=== PATIENT | female | born 1960 | race Caucasian/White ===

== ENCOUNTER → 2016-12-06 | Outpatient (CLI) | payer OTHER ==
[~2016-12-06] MED LIST: OMEP40CA2 PO; RANI1TAB6 PO; VITA500046 PO
--- NOTE | 2016-12-06 13:00 | REPMRS ---
Patient History The patient states she had a clinical breast exam in 2016. Patient is postmenopausal. Family history of breast cancer in maternal aunt at age 60. Digital Mammo Screening Bilat: December 06, 2016 - Exam #: [id number] Bilateral CC and MLO view(s) were taken. Technologist: Giovanna Muhammad, Technologist Prior study comparison: November 23, 2015, bilateral digital mammo screening bilat performed at [facility]. October 03, 2014, bilateral digital mammo screening bilat performed at [facility]. FINDINGS: There are scattered fibroglandular densities. There has been no change in the appearance of the mammogram from the prior studies. There is a mild amount of residual fibroglandular tissue which is fairly symmetric. There is no interval development of dominant mass, architectural distortion, or clustered microcalcification suggestive of malignancy. ASSESSMENT: BI-RADS/ACR category 1 mammogram. Negative. Recommendation Routine screening mammogram in 1 year (for women over age 40). This mammogram was interpreted with the aid of an FDA-approved computer-aided dectection system. Electronically Signed By: Phong Bautista MD 12/06/16 1300
== END ==
LOC: M RAD 12:14
PROVIDERS: ATTEND Internal Medicine
DX: Z12.31 Encounter for screening mammogram for malignant neoplasm of breast (principal)

== ENCOUNTER → 2018-03-29 | Outpatient (CLI) | payer OTHER ==
[2018-03-29 10:10] LABS: ALBUMIN 3.6 GM/DL (3.2-5.2); ALT/SGPT 29 U/L (12-78); BILIRUBIN,DIRECT < 0.1 MG/DL (0.0-0.2); BILIRUBIN,TOTAL 0.4 MG/DL (0.2-1.0); CHOLESTEROL LEVEL 216 MG/DL (<200); CHOLESTEROL RISK RATIO 3.724 (<5); GAMMA GLUTAMYLTRANSPEPTIDASE 44 U/L (5-55); HDL CHOLESTEROL 58 MG/DL (>40); LDL CHOLESTEROL 125 MG/DL (<100); NON-HDL-C 158 MG/DL; TOTAL PROTEIN 6.7 GM/DL (6.4-8.2); TRIGLYCERIDES LEVEL 167 MG/DL (<150)
[2018-03-30 10:06] LABS: TOTAL 25(OH) VITAMIN D 54.7 NG/ML (30.0-100.0)
== END ==
LOC: M WUC 08:40
PROVIDERS: ATTEND Internal Medicine
DX: E78.5 Hyperlipidemia, unspecified (principal); R74.8 Abnormal levels of other serum enzymes; E55.9 Vitamin D deficiency, unspecified

== ENCOUNTER → 2018-07-10 | Outpatient (CLI) | payer OTHER | LOC: M WUC 08:45 | PROVIDERS: ATTEND Internal Medicine | DX: E04.2 Nontoxic multinodular goiter (principal) ==

== ENCOUNTER → 2018-08-31 | Outpatient (REF) | payer OTHER ==
[2018-08-31 19:30] LABS: C REACTIVE PROTEIN QUANTITATIV 0.34 MG/DL (0.00-0.30)
[2018-09-02 14:30] LABS: HEPATITIS B SURFACE ANTIGEN NEGATIVE (NEGATIVE)
[2018-09-02 14:58] LABS: HEPATITIS C VIRUS ABY INDEX 0.1 INDEX (<0.8)
[2018-09-02 15:00] LABS: HEPATITIS A ANTIBODY IGM NEGATIVE (NEGATIVE)
[2018-09-04 10:19] LABS: HEPATITIS B CORE ANTIBODY IGM NEGATIVE (NEGATIVE)
== END ==
LOC: M LAB REF 17:18
PROVIDERS: ATTEND Internal Medicine
DX: R74.8 Abnormal levels of other serum enzymes (principal); R11.2 Nausea with vomiting, unspecified; R19.7 Diarrhea, unspecified

== ENCOUNTER → 2018-09-08 | Outpatient (REF) | payer OTHER | LOC: M LAB REF 10:21 | PROVIDERS: ATTEND Internal Medicine | DX: R19.7 Diarrhea, unspecified (principal); R11.2 Nausea with vomiting, unspecified ==

== ENCOUNTER 2019-04-27 09:06 | Emergency (ER) | payer OTHER ==
[~2019-04-27] VITALS: Ht 170.2 cm; Wt 93.0 kg
[~2019-04-27 09:06] MED LIST changes: -OMEP40CA2 PO; +OMEP40CA97 PO; +RANI-397 PO; -RANI1TAB6 PO
[2019-04-27] MEDS ORDERED: MULT1TAB8 PO (10:13)
[2019-04-27] MEDS ORDERED: OMEGCAP9 PO (10:13)
[2019-04-27] MEDS ORDERED: [UNRECOGNIZED DRUG - CODE] PO (10:13)
[2019-04-27] MEDS ORDERED: NORC1TAB7 PO (10:13)
[2019-04-27] MEDS ORDERED: OMEP-218 PO (10:13)
[2019-04-27] MEDS ORDERED: KETOROLAC 60 MG/2 ML VIAL (J1885) IM ONE (10:45)
[2019-04-27] MEDS ORDERED: ACETAMINOPHEN 325 MG TAB PO ONE (10:45)
--- NOTE | 2019-04-27 11:23 | REP ---
Lumbar spine three views: Comparison is 04/09/2011. Vertebral body heights and alignment are normal. No compression deformities. There is no listhesis. No gross evidence of spondylolysis. There is advanced degenerative disc disease at every lumbar level with bridging osteophytes throughout the lumbar spine. This has progressed from the prior study. The sacroiliac articulations are unremarkable. Impression: No fracture, compression deformity or listhesis. Multilevel degenerative disc disease with large bridging osteophytes throughout the lumbar spine that has progressed from the prior study. Electronically Signed by Phong Rosen MD 04/27/2019 11:14 A
--- NOTE | 2019-04-27 11:25 | REP ---
Left ribs for views: There is no rib fracture or other rib abnormality. PA chest: Comparison is the PA and lateral chest of 03/27/2015. There is no pneumothorax, hemothorax or pulmonary contusion. There is no focal or diffuse pleural thickening. Lung gonzalez are clear. Cardiac size is normal. The ang, mediastinum, skeletal structures are unremarkable except for an orthopedic screw in the left humeral head as an interval change. Impression: Negative PA chest. An orthopedic screw is incidentally noted in the left humeral head. Electronically Signed by Phong Rosen MD 04/27/2019 11:16 A
--- NOTE | 2019-04-27 11:26 | REP ---
Thoracic spine three views: Comparison is a PA and lateral chest dated 03/27/2015. Vertebral body heights and alignment are normal. There is moderate degenerative disc disease throughout the thoracic spine that has slightly progressed. The pedicles are unremarkable. Impression: No compression deformity or listhesis. Multilevel thoracic spine degenerative disc disease. Electronically Signed by Phong Rosen MD 04/27/2019 11:17 A
[2019-04-27 11:38] VITALS: BP 160/67
[2019-04-27] MEDS ORDERED: KETO10TAB PO (11:51)
== END 2019-04-27 12:01 | disposition home or self-care (01) ==
LOC: M ED 09:06
DX: S20.219A Contusion of unspecified front wall of thorax, initial encounter (principal); S29.012A Strain of muscle and tendon of back wall of thorax, initial encounter; S39.012A Strain of muscle, fascia and tendon of lower back, initial encounter; W01.198A Fall on same level from slipping, tripping and stumbling with subsequent striking against other object, initial encounter; Y92.019 Unspecified place in single-family (private) house as the place of occurrence of the external cause; M51.34 Other intervertebral disc degeneration, thoracic region; M51.36 Other intervertebral disc degeneration, lumbar region; M25.78 Osteophyte, vertebrae; K21.9 Gastro-esophageal reflux disease without esophagitis; Z79.899 Other long term (current) drug therapy
CPT/HCPCS: 71101; 72070; 72100; 96372; 99283; J1885

== ENCOUNTER 2020-04-18 12:28 | Emergency (ER) | payer OTHER ==
[~2020-04-18] VITALS: Ht 170.2 cm; Wt 90.9 kg
[~2020-04-18 12:28] MED LIST changes: +KETO10TAB PO; +MULT1TAB8 PO; +NORC1TAB7 PO; +OMEGCAP9 PO; +OMEP-218 PO; +[UNRECOGNIZED DRUG - CODE] PO
[2020-04-18 12:29] VITALS: BP 178/81
[2020-04-18] MEDS ORDERED: AMOX500C (12:37)
[2020-04-18] MEDS ORDERED: FLUORESCEIN OPHTH 1 MG STRIP OD ONE (12:55)
[2020-04-18] MEDS ORDERED: PROPARACAINE 0.5% OPHTH SOL 15ML OD ONE (12:55)
[2020-04-18] MEDS ORDERED: ERYTHROMYCIN OPHTH OINT OD ONE (13:25)
[2020-04-18] MEDS ORDERED: ERYT5OIN25 OP (13:26)
== END 2020-04-18 13:47 | disposition home or self-care (01) ==
LOC: M ED 12:28
DX: S05.01XA Injury of conjunctiva and corneal abrasion without foreign body, right eye, initial encounter (principal); X58.XXXA Exposure to other specified factors, initial encounter; Y92.89 Other specified places as the place of occurrence of the external cause; K21.9 Gastro-esophageal reflux disease without esophagitis; Z79.899 Other long term (current) drug therapy; Z87.891 Personal history of nicotine dependence

== ENCOUNTER → 2020-09-13 | Outpatient (REF) | payer OTHER ==
[~2020-09-13] MED LIST changes: +AMOX500C; +ERYT5OIN25 OP; +OMEP40CA4 PO; -OMEP40CA97 PO
== END ==
LOC: M LAB REF 16:49
PROVIDERS: ATTEND Internal Medicine
DX: M24.50 Contracture, unspecified joint (principal)

== ENCOUNTER → 2021-01-10 | Outpatient (REF) | payer OTHER | LOC: M LAB REF 12:19 | PROVIDERS: ATTEND Internal Medicine | DX: R79.82 Elevated C-reactive protein (CRP) (principal) ==

== ENCOUNTER → 2021-02-14 | Outpatient (CLI) | payer OTHER ==
--- NOTE | 2021-02-14 09:57 | REP ---
INDICATION: RIGHT HIP PAIN COMPARISON: None. TECHNIQUE: AP and frog-lateral views of the right hip FINDINGS: Generalized age-related changes include subtle increased sclerosis to the acetabulum with minimal joint space narrowing and marginal spurring. Cortical irregularity at the greater tuberosity is also appreciated along with enthesopathy along the inferior pubic ramus. No evidence for acute or healed injury. Surrounding soft tissues are normal. IMPRESSION: Mild generalized age-related changes. <Electronically signed by Renny Steward > 02/14/21 0942
== END ==
LOC: M WUC 09:26
PROVIDERS: ATTEND Internal Medicine
DX: M25.551 Pain in right hip (principal)

== ENCOUNTER → 2021-03-07 | Outpatient (CLI) | payer OTHER ==
[~2021-03-07] MED LIST changes: +OMEP-173 PO; -OMEP-218 PO
== END ==
LOC: M WUC 08:45
PROVIDERS: ATTEND Internal Medicine
DX: M19.072 Primary osteoarthritis, left ankle and foot (principal)

== ENCOUNTER → 2021-04-15 | Outpatient (CLI) | payer OTHER | LOC: M RAD 10:22 | PROVIDERS: ATTEND Physician Assistant | DX: M19.011 Primary osteoarthritis, right shoulder (principal); M25.511 Pain in right shoulder; M79.621 Pain in right upper arm ==

== ENCOUNTER → 2021-05-24 | Outpatient (CLI) | payer OTHER | LOC: M PLAIMG 08:46 | PROVIDERS: ATTEND Internal Medicine | DX: M54.2 Cervicalgia (principal) ==

== ENCOUNTER → 2021-08-02 | Outpatient (REF) | payer OTHER | LOC: M LAB REF 19:08 | PROVIDERS: ATTEND Physician Assistant | DX: Z11.9 Encounter for screening for infectious and parasitic diseases, unspecified (principal); W57.XXXA Bitten or stung by nonvenomous insect and other nonvenomous arthropods, initial encounter ==

== ENCOUNTER → 2021-08-06 | Outpatient (REF) | payer OTHER | LOC: M SFHCDERM 18:13 | PROVIDERS: ATTEND Nurse Practitioner Family | DX: L81.4 Other melanin hyperpigmentation (principal) ==

== ENCOUNTER → 2021-09-17 | Outpatient (CLI) | payer OTHER | LOC: M WHC 13:33 | PROVIDERS: ATTEND Internal Medicine | DX: E04.2 Nontoxic multinodular goiter (principal); R13.10 Dysphagia, unspecified; R22.2 Localized swelling, mass and lump, trunk ==

== ENCOUNTER 2021-11-13 14:57 | Outpatient (RCR) | payer OTHER | END 2021-11-16 | LOC: M PT 14:57 | PROVIDERS: ATTEND Orthopaedic Surgery | DX: S46.991D Other injury of unspecified muscle, fascia and tendon at shoulder and upper arm level, right arm, subsequent encounter (principal) ==

== ENCOUNTER 2021-12-13 16:00 | Outpatient (RCR) | payer OTHER | END 2021-12-17 | LOC: M PT 16:00 | PROVIDERS: ATTEND Orthopaedic Surgery | DX: S46.991D Other injury of unspecified muscle, fascia and tendon at shoulder and upper arm level, right arm, subsequent encounter (principal) ==

== ENCOUNTER 2022-01-09 08:30 | Outpatient (RCR) | payer OTHER | END 2022-01-16 | LOC: M PT 08:30 | PROVIDERS: ATTEND Orthopaedic Surgery | DX: S46.991D Other injury of unspecified muscle, fascia and tendon at shoulder and upper arm level, right arm, subsequent encounter (principal) ==

== ENCOUNTER 2022-02-07 16:00 | Outpatient (RCR) | payer OTHER | END 2022-02-16 | LOC: M PT 16:00 | PROVIDERS: ATTEND Orthopaedic Surgery | DX: S46.991D Other injury of unspecified muscle, fascia and tendon at shoulder and upper arm level, right arm, subsequent encounter (principal) ==

== ENCOUNTER 2023-01-31 08:20 | Emergency (ER) | payer OTHER ==
[~2023-01-31] VITALS: Ht 170.2 cm; Wt 88.2 kg
[2023-01-31] MEDS ORDERED: NAPR220C14 PO (08:35)
[2023-01-31] MEDS ORDERED: OMEP1CAP71 (08:35)
[2023-01-31] MEDS ORDERED: IBUPROFEN 600MG TAB PO ONE (10:30)
[2023-01-31 12:14] VITALS: BP 171/79; TEMP 97.4; O2SAT 100
== END 2023-01-31 12:21 | disposition home or self-care (01) ==
LOC: M ED 08:20
DX: M17.11 Unilateral primary osteoarthritis, right knee (principal); M79.604 Pain in right leg; K21.9 Gastro-esophageal reflux disease without esophagitis; F10.10 Alcohol abuse, uncomplicated; Z79.810 Long term (current) use of selective estrogen receptor modulators (SERMs); Z79.83 Long term (current) use of bisphosphonates; Z79.1 Long term (current) use of non-steroidal anti-inflammatories (NSAID)

== ENCOUNTER → 2023-03-19 | Outpatient (RCR) | payer OTHER ==
[~2023-03-19] MED LIST changes: +NAPR220C14 PO; +OMEP1CAP71
== END ==
LOC: M PT 03-12 14:12
PROVIDERS: ATTEND Physician Assistant Surgical
DX: M54.50 Low back pain, unspecified (principal)

== ENCOUNTER 2023-04-16 16:00 | Outpatient (RCR) | payer OTHER | END 2023-04-17 | LOC: M PT 16:00 | PROVIDERS: ATTEND Physician Assistant Surgical | DX: M25.561 Pain in right knee (principal) ==

== ENCOUNTER 2023-04-23 15:13 | Outpatient (RCR) | payer OTHER | END 2023-05-18 | LOC: M PT 15:13 | PROVIDERS: ATTEND Physician Assistant Surgical | DX: M25.561 Pain in right knee (principal) ==

== ENCOUNTER 2023-05-30 11:01 | Emergency (ER) | payer OTHER ==
[~2023-05-30] VITALS: Ht 170.2 cm; Wt 88.4 kg
[2023-05-30 11:49] LABS: BASO # 0.1 10^3/uL (0.0-0.2); BASO % 0.6 % (0.0-1.0); EOS # 0.2 10^3/uL (0.0-0.5); EOS % 2.6 % (0.0-3.0); HEMATOCRIT 38.8 % (36.0-47.0); HEMOGLOBIN 13.5 g/dl (12.0-15.5); LYMPH # 2.4 10^3/uL (1.5-5.0); LYMPH % 31.3 % (24.0-44.0); MEAN CORPUSCULAR HEMOGLOBIN 32.8 pg (27.0-33.0); MEAN CORPUSCULAR HGB CONC 34.8 g/dl (32.0-36.5); MEAN CORPUSCULAR VOLUME 94.2 fl (80.0-96.0); MONO # 0.6 10^3/uL (0.0-0.8); MONO % 7.8 % (2.0-8.0); NEUTROPHILS # 4.4 10^3/uL (1.5-8.5); NEUTROPHILS % 57.6 % (36.0-66.0); PLATELET COUNT, AUTOMATED 339 10^3/uL (150-450); RED BLOOD COUNT 4.12 10^6/uL (4.00-5.40); WHITE BLOOD COUNT 7.7 10^3/uL (4.0-10.0)
[2023-05-30 12:08] LABS: CK-MB VALUE MASS 1.3 NG/ML (<3.6)
[2023-05-30 12:09] LABS: LIPASE 42 U/L (12-53)
[2023-05-30 12:11] LABS: ALKALINE PHOSPHATASE 97 U/L (46-116); ALT/SGPT 36 U/L (7.0-40); AST/SGOT 25 U/L (<34); BILIRUBIN,DIRECT < 0.1 MG/DL (<0.4); BILIRUBIN,TOTAL 0.7 MG/DL (0.3-1.2); BLOOD UREA NITROGEN 25 MG/DL (9-23); CALCIUM LEVEL 10.4 MG/DL (8.3-10.6); CARBON DIOXIDE LEVEL 29 MMOL/L (20-31); CHLORIDE LEVEL 106 MMOL/L (98-107); CPK CREATINE PHOSPHOKINASE 98 U/L (34-145); CREATININE FOR GFR 0.86 MG/DL (0.55-1.30); GLOMERULAR FILTRATION RATE > 60.0 (>45); GLUCOSE, FASTING 95 MG/DL (74-106); MB/CK RELATIVE INDEX 1.32 (< OR =4); POTASSIUM SERUM 4.3 MMOL/L (3.5-5.1); SODIUM LEVEL 142 MMOL/L (136-145); TOTAL PROTEIN 6.8 G/DL (5.7-8.2)
[2023-05-30] MEDS: KETOROLAC 30 MG/ML 1ML VIAL IV ONE (13:56)
[2023-05-30] MEDS ORDERED: ISOVUE-370 76% 100ML VIAL As Ordered ONE (14:02)
[2023-05-30] MEDS ORDERED: FAMO20TA PO (16:43)
[2023-05-30 16:53] VITALS: BP 180/79; TEMP 97.7; O2SAT 97
== END 2023-05-30 17:13 | disposition home or self-care (01) ==
LOC: M ED 11:01
DX: K29.70 Gastritis, unspecified, without bleeding (principal); K21.9 Gastro-esophageal reflux disease without esophagitis; Z90.710 Acquired absence of both cervix and uterus; Z79.1 Long term (current) use of non-steroidal anti-inflammatories (NSAID); Z79.83 Long term (current) use of bisphosphonates; Z79.899 Other long term (current) drug therapy
CPT/HCPCS: 74177; 80048; 80076; 82550; 82553; 83690; 84484; 85025; 93005; 96374; 99284; J1885; Q9967

== ENCOUNTER 2023-08-26 08:37 | Day surgery (SDC) | payer OTHER ==
[~2023-08-26] VITALS: Ht 170.2 cm; Wt 87.8 kg
[~2023-08-26 08:37] MED LIST changes: +CALCTAB54 PO; +FAMO20TA PO; +K2 P1TAB PO; +OMEG350C PO; +VITA100093 PO
[2023-08-26 08:41] VITALS: BP 179/77; TEMP 97.3; O2SAT 99
[2023-08-26] MEDS ORDERED: LIDOCAINE VISCOUS 2% SOLN 15ML UDC As Ordered ONE (09:07)
== END 2023-08-26 09:58 | disposition home or self-care (01) ==
LOC: M OPP 08:37
PROVIDERS: ATTEND Surgery
DX: K44.9 Diaphragmatic hernia without obstruction or gangrene (principal)

== ENCOUNTER → 2023-10-21 | Outpatient (REF) | payer OTHER | LOC: M LAB REF 15:13 | PROVIDERS: ATTEND Surgery | DX: D23.72 Other benign neoplasm of skin of left lower limb, including hip (principal) ==

== ENCOUNTER 2023-12-01 06:08 | Day surgery (SDC) | payer OTHER ==
[~2023-12-01] VITALS: Ht 170.2 cm; Wt 85.2 kg
[2023-12-01] MEDS ORDERED: CLAR10CA3 PO (06:40)
[2023-12-01] MEDS ORDERED: FLON1SPR (06:40)
[2023-12-01] MEDS ORDERED: FAMO20TA PO (06:40)
[2023-12-01] MEDS ORDERED: MIDAZOLAM INJ 2MG/2ML VIAL As Ordered ONE (07:14)
[2023-12-01] MEDS ORDERED: ROCURONIUM BROMIDE 50MG/5ML VIAL As Ordered ONE (07:14)
[2023-12-01] MEDS ORDERED: propofoL 200 MG/20 ML VIAL As Ordered ONE (07:14)
[2023-12-01] MEDS ORDERED: LIDOCAINE 2% 100MG/5ML SDV (FOR ANES.) As Ordered ONE (07:14)
[2023-12-01] MEDS ORDERED: fentaNYL 100 MCG/2 ML INJECTION As Ordered ONE (07:14)
[2023-12-01] MEDS ORDERED: LR 1,000 ML IV SCH (07:35)
[2023-12-01] MEDS: ceFAZolin SOD 2 GM in IV 1 EA IV ONE (07:47)
[2023-12-01] MEDS: HEPARIN SOD (PORCINE) 5000UNITS/ML 1ML VIAL/SYRINGE SQ ONE (07:57)
[2023-12-01] MEDS ORDERED: SUGAMMADEX SODIUM 500 MG/5 ML VIAL (BRIDION) As Ordered ONE (08:02)
[2023-12-01] MEDS ORDERED: KETOROLAC 60MG 2ML VIAL As Ordered ONE (08:02)
[2023-12-01] MEDS ORDERED: ACETAMINOPHEN 1000MG 100ML IV BAG As Ordered ONE (08:02)
[2023-12-01] MEDS ORDERED: ONDANSETRON 4MG 2ML VIAL As Ordered ONE (08:02)
[2023-12-01] MEDS ORDERED: METOCLOPRAMIDE INJ 10MG/2ML VIAL As Ordered ONE (08:02)
[2023-12-01] MEDS ORDERED: HYDROmorphone HCL 2MG/ML 1ML VIAL As Ordered ONE (08:18)
[2023-12-01] MEDS ORDERED: LABETALOL 100MG/20ML VIAL As Ordered ONE (08:26)
[2023-12-01] MEDS ORDERED: hydrALAZINE 20MG/ML 1ML VIAL As Ordered ONE (08:54)
[2023-12-01] MEDS ORDERED: MORPHINE 2 MG/ML 1ML VIAL IV PRN (10:00)
[2023-12-01] MEDS ORDERED: fentaNYL 100 MCG/2 ML INJECTION IV PRN (10:00)
[2023-12-01] MEDS ORDERED: ONDANSETRON 4MG 2ML VIAL IV PRN (10:00)
[2023-12-01] MEDS ORDERED: SIME1CAP4 PO (10:25)
[2023-12-01] MEDS ORDERED: REGL10TA6 PO (10:25)
[2023-12-01] MEDS: oxyCODONE 5MG TAB PO PRN (10:30)
[2023-12-01 11:45] VITALS: BP 161/74; TEMP 97.1; O2SAT 98
== END 2023-12-01 11:50 | disposition home or self-care (01) ==
LOC: M SDC 06:08
PROVIDERS: ATTEND Surgery
DX: K44.9 Diaphragmatic hernia without obstruction or gangrene (principal); K21.9 Gastro-esophageal reflux disease without esophagitis; Z79.899 Other long term (current) drug therapy
CPT/HCPCS: 43281; C9290; J0131; J0360; J0665; J0690; J1100; J1171; J1885; J1920; J2250; J2405; J2765; J3010; S2900

== ENCOUNTER 2023-12-15 10:14 | Inpatient (IN) | payer OTHER ==
[~2023-12-15] VITALS: Ht 170.2 cm; Wt 81.8 kg
[~2023-12-15 10:14] MED LIST changes: +CLAR10CA3 PO; +FLON1SPR; +REGL10TA6 PO; +SIME1CAP4 PO
[2023-12-15 12:00] VITALS: BP 159/82; TEMP 97.9; O2SAT 97
[2023-12-15 13:54] LABS: BASO % 0.5 % (0.0-1.0); EOS # 0.1 10^3/uL (0.0-0.5); EOS % 1.3 % (0.0-3.0); HEMATOCRIT 39.6 % (36.0-47.0); HEMOGLOBIN 13.8 g/dl (12.0-15.5); LYMPH % 23.5 % (24.0-44.0); MEAN CORPUSCULAR HGB CONC 34.8 g/dl (32.0-36.5); MEAN CORPUSCULAR VOLUME 94.7 fl (80.0-96.0); MONO # 0.6 10^3/uL (0.0-0.8); MONO % 6.8 % (2.0-8.0); NEUTROPHILS # 5.8 10^3/uL (1.5-8.5); NEUTROPHILS % 67.7 % (36.0-66.0); PLATELET COUNT, AUTOMATED 355 10^3/uL (150-450); RED BLOOD COUNT 4.18 10^6/uL (4.00-5.40); WHITE BLOOD COUNT 8.6 10^3/uL (4.0-10.0)
[2023-12-15] MEDS: KCL 40MEQ IN D5/0.45NS 1000ML 1,000 ML IV SCH (14:23)
[2023-12-15 14:25] LABS: BLOOD UREA NITROGEN 15 MG/DL (9-23); CALCIUM LEVEL 9.6 MG/DL (8.3-10.6); CARBON DIOXIDE LEVEL 26 MMOL/L (20-31); CHLORIDE LEVEL 108 MMOL/L (98-107); CREATININE FOR GFR 0.75 MG/DL (0.55-1.30); GLOMERULAR FILTRATION RATE > 60.0 (>45); GLUCOSE, FASTING 88 MG/DL (74-106); POTASSIUM SERUM 4.1 MMOL/L (3.5-5.1); SODIUM LEVEL 141 MMOL/L (136-145)
[2023-12-15] MEDS ORDERED: SIME1CAP4 PO (16:31)
[2023-12-15] MEDS ORDERED: METO10TA2 PO (16:31)
[2023-12-15] MEDS ORDERED: HOME MED LIST COMPLETE! XX SCH (16:35)
[2023-12-15] MEDS: ACETAMINOPHEN *IV* 1,000 MG in IV 1 EA IV ONE (16:39)
[2023-12-15] MEDS: PANTOPRAZOLE 40MG VIAL IV SCH (16:39)
[2023-12-15] MEDS: ONDANSETRON 4MG 2ML VIAL IV PRN (18:33)
[2023-12-15 19:39] VITALS: BP 173/77; TEMP 97.7; O2SAT 95
[2023-12-15 20:00] VITALS: BP 160/80
[2023-12-16 04:33] VITALS: BP 146/83; TEMP 97.7; O2SAT 98
[2023-12-16] MEDS ORDERED: E-Z-HD 98% w/w 340GM SUSP BTL As Ordered ONE (07:43)
[2023-12-16] MEDS ORDERED: E-Z-GAS II EFFERVESCENT PACKET (SODIUM BICARB./CITRIC ACID/SIMETHICONE) As Ordered ONE (07:43)
[2023-12-16] MEDS ORDERED: E-Z-PAQUE 96% w/w SUSP 176GM BTL As Ordered ONE (07:43)
[2023-12-16] MEDS: ACETAMINOPHEN *IV* 1,000 MG in IV 1 EA IV ONE (08:47)
[2023-12-16 12:00] VITALS: BP 151/79; TEMP 97.9; O2SAT 99
[2023-12-16] MEDS: ACETAMINOPHEN 325 MG TAB PO PRN (19:47)
[2023-12-16 20:06] VITALS: BP 161/86; TEMP 97.3; O2SAT 97
[2023-12-17 04:31] VITALS: BP 148/86; TEMP 97.2; O2SAT 98
[2023-12-17 12:00] VITALS: BP 128/71; TEMP 97.9; O2SAT 98
[2023-12-17] MEDS ORDERED: MEDR4PAK PO (14:00)
== END 2023-12-17 15:30 | disposition home or self-care (01) | DRG 392 ==
LOC: M MS5PR 11:50
PROVIDERS: ADMIT Surgery; ATTEND Surgery
DX: K22.4 Dyskinesia of esophagus (principal); R13.19 Other dysphagia; K21.9 Gastro-esophageal reflux disease without esophagitis; H40.9 Unspecified glaucoma; K44.9 Diaphragmatic hernia without obstruction or gangrene; Z79.899 Other long term (current) drug therapy